=== PATIENT | female | born 1980 | race African-American/Black ===

== ENCOUNTER 2019-10-10 05:39 | Emergency (ER) | payer OTHER ==
[~2019-10-10] VITALS: Ht 152.4 cm; Wt 53.5 kg
[~2019-10-10 05:39] MED LIST: ALBU0.0912 IH; ALPR0.5T2 PO; FLONAS NS; TRAZ100T99 PO
[2019-10-10 05:50] VITALS: BP 138/90
--- NOTE | 2019-10-10 05:50 | NUR ---
PT AMBULATED TO ER BED 8
--- NOTE | 2019-10-10 06:02 | NUR ---
39 YO F PEMA SELF PRESENTS TO ED C/O 07/30 THROBBING UPPER LEFT LEG PAIN X 3 DAYS THAT IS CONSTANT. PT HAS HAD SIMILAR PAIN BEFORE X 1 YEAR AGO. NEGATIVE XRAY, TX'D WITH PHYSICAL THERAPY. PT STATES PHYSICAL THERAPY MADE IT WORSE BUT GRADUALLY WENT AWAY. PT STATES PAIN HAS BEEN GRADUALLY RETURNING X 1 WEEK. PAIN HAS BEEN UNCONTROLLED AND SEVERE X 3 DAYS. MEDICATED AT HOME WITH TRAMADOL AND ROBAXIN WITH MINIMAL RELIEF. REPORTS DIFFICULTY WALKING. PMH-- HIV+, HYSTERECTOMY- 2013, HERNIA REPAIR-2014 RX-- TRIMEC, TRAMADOL AND ROBAXIN Addendum: 10/10/19 at 0612 by [facility] DENIES RECENT TRAUMA/INJURY.
[2019-10-10] MEDS ORDERED: MORPHINE SULFATE 4 MG/ML SYR IM ONE (06:15)
--- NOTE | 2019-10-10 06:26 | NUR ---
MEDICATED WITH 4 MG IM MORPHINE FOR 10/10 LEFT LEG PAIN. WILL REASSESS.
--- NOTE | 2019-10-10 06:50 | NUR ---
REPORTS PAIN RELIEF; 03/30. PT STATES PAIN LEVEL IS TOLERABLE AT THIS TIME. PT STATES SHE WILL BE CALLING MOM FOR RIDE HOME.
[2019-10-10 06:51] VITALS: BP 138/90
--- NOTE | 2019-10-10 06:51 | NUR ---
Patient discharged with v/s stable. Written and verbal after care instructions given and explained. Patient alert, oriented and verbalized understanding of instructions. Ambulatory with steady gait. All questions addressed prior to discharge. ID band removed. Patient advised to follow up with PMD. Rx of [place] given. Patient educated on indication of medication including possible reaction and side effects. Opportunity to ask questions provided and answered.
== END 2019-10-10 06:51 | disposition home or self-care (01) ==
LOC: MED 05:39
DX: M79.652 Pain in left thigh (principal); J45.909 Unspecified asthma, uncomplicated; Z85.89 Personal history of malignant neoplasm of other organs and systems; Z90.710 Acquired absence of both cervix and uterus; Z88.1 Allergy status to other antibiotic agents; Z88.8 Allergy status to other drugs, medicaments and biological substances
CPT/HCPCS: 81002; 96372; 99283; J2270

== ENCOUNTER 2019-10-18 08:58 | Emergency (ER) | payer OTHER ==
[~2019-10-18] VITALS: Ht 149.9 cm; Wt 53.5 kg
[2019-10-18 09:05] VITALS: BP 127/79
--- NOTE | 2019-10-18 09:14 | NUR ---
PT TAKEN TO ER BED 11
--- NOTE | 2019-10-18 09:20 | NUR ---
C/O L LEG PAIN 05/30 & THROBBING X2 WEEKS. PT STATES THE PAIN STARTS IN THE HIP AREA AND RADIATES DOWN THE LLE. MEDICATED AT HOME WITH TRAMADOL WITH NO RELIEF. PT STATES IT IS PAINFUL AND DIFFICULT TO WALK. NO OBVIOUS DEFORMITY TO LLE, PT DENIES INJURY. CMS INTACT. PT PROVIDED GOWN TO CHANGE INTO, SIDE RAIL UP X1, BED IN LOW POSITION.
--- NOTE | 2019-10-18 10:05 | NUR ---
ERMD AT BEDSIDE
[2019-10-18] MEDS ORDERED: hydrOXYzine HCL 25 MG TAB PO ONE (10:20)
[2019-10-18] MEDS ORDERED: MORPHINE SULFATE 4 MG/ML SYR IM ONE (10:20)
[2019-10-18] MEDS ORDERED: DEXAMETHASONE 10 MG/ML VIAL IM ONE (10:20)
--- NOTE | 2019-10-18 11:40 | NUR ---
PT REPORTS PAIN RELIEF AT THIS TIME, 3/10 PAIN TO LLE
[2019-10-18 12:11] VITALS: BP 121/78
== END 2019-10-18 12:12 | disposition home or self-care (01) ==
LOC: MED 08:58
DX: M79.605 Pain in left leg (principal); J45.909 Unspecified asthma, uncomplicated; Z76.0 Encounter for issue of repeat prescription; Z79.899 Other long term (current) drug therapy; Z90.710 Acquired absence of both cervix and uterus; Z88.1 Allergy status to other antibiotic agents; Z88.8 Allergy status to other drugs, medicaments and biological substances; Z98.890 Other specified postprocedural states
CPT/HCPCS: 96372; 99283; J1100; J2270

== ENCOUNTER 2019-11-16 12:28 | Emergency (ER) | payer OTHER ==
[~2019-11-16] VITALS: Ht 152.4 cm; Wt 53.5 kg
[2019-11-16 12:43] VITALS: BP 113/93
--- NOTE | 2019-11-16 12:50 | NUR ---
pt ambulates to lobby in stable condition
--- NOTE | 2019-11-16 13:44 | NUR ---
Patient ambulated to chair B. RN evaluating patient.
[2019-11-16] MEDS ORDERED: HYDROcodone/APAP 5/325 MG 1 TAB TAB PO ONE (14:05)
--- NOTE | 2019-11-16 14:21 | NUR ---
C/O INTERMITTENT LEFT HIP/THIGH CHRONIC---AMBULATORY WITH STEADY GAIT.
--- NOTE | 2019-11-16 14:23 | NUR ---
C/O INTERMITTENT LEFT HIP/THIGH CHRONIC---AMBULATORY WITH STEADY GAIT.
[2019-11-16 14:24] VITALS: BP 121/89
== END 2019-11-16 14:25 | disposition home or self-care (01) ==
LOC: MED 12:28
DX: G89.29 Other chronic pain (principal); M25.552 Pain in left hip; Z76.0 Encounter for issue of repeat prescription; Z88.1 Allergy status to other antibiotic agents; J45.909 Unspecified asthma, uncomplicated; Z85.89 Personal history of malignant neoplasm of other organs and systems; Z79.899 Other long term (current) drug therapy
CPT/HCPCS: 99283

== ENCOUNTER 2020-01-03 14:07 | Emergency (ER) | payer OTHER ==
[~2020-01-03] VITALS: Ht 152.4 cm; Wt 52.2 kg
[~2020-01-03 14:07] MED LIST changes: +TRAZ-471 PO; -TRAZ100T99 PO
[2020-01-03 14:13] VITALS: BP 112/69
--- NOTE | 2020-01-03 14:19 | NUR ---
PT WHEELED TO BED 2.
--- NOTE | 2020-01-03 14:26 | NUR ---
39 Y/O FEMALE C/O LT HIP PAIN X 1 YEAR WORSENING THE LAST 2 DAYS. STATES SHE IS AWAITING HIP REPLACEMENT AND PAIN MEDICATIONS ARE NOT CONTROLLING PAIN. STATES SHE IS UNABLE TO AMBULATE, DENIES TRAUMA/INJURY. 10/10 CONSTANT THROBBING PAIN. + CMS. SKIN WARM AND DRY. NO DEFORMITIES NOTED. NO BRUISING/SWELLING. SITTING IN BED X 1 SIDE RAIL RAISED, BED LOCKED AND IN LOW POSITION. MEDHX: HIV, HTN ALLERGIES: ROCEPHIN, IBUPROFEN
--- NOTE | 2020-01-03 14:28 | NUR ---
DR HILLMAN AT BEDSIDE EXAMINING PT
[2020-01-03] MEDS ORDERED: fentaNYL 0.05 MG/ML VIAL IM ONE (14:30)
[2020-01-03] MEDS ORDERED: LORazepam 2 MG/ML VIAL IM ONE (14:30)
--- NOTE | 2020-01-03 15:17 | NUR ---
STATES SLIGHT DECREASE IN PAIN, 7/10 AT THIS TIME
[2020-01-03 15:19] VITALS: BP 112/69
--- NOTE | 2020-01-03 15:19 | NUR ---
Patient discharged with v/s stable. Written and verbal after care instructions given and explained. Patient alert, oriented and verbalized understanding of instructions. Ambulatory with steady gait. All questions addressed prior to discharge. ID band removed. Patient advised to follow up with PMD. Rx of NORCO given. Patient educated on indication of medication including possible reaction and side effects. Opportunity to ask questions provided and answered. PT STATES SHE HAS RIDE HOME
== END 2020-01-03 15:19 | disposition home or self-care (01) ==
LOC: MED 14:07
DX: M25.552 Pain in left hip (principal); M79.605 Pain in left leg; J45.909 Unspecified asthma, uncomplicated; I10 Essential (primary) hypertension; Z79.899 Other long term (current) drug therapy; Z88.1 Allergy status to other antibiotic agents; Z88.6 Allergy status to analgesic agent; Z85.3 Personal history of malignant neoplasm of breast
CPT/HCPCS: 96372; 99284; J2060; J3010

== ENCOUNTER 2020-06-28 20:09 | Emergency (ER) | payer OTHER ==
[~2020-06-28] VITALS: Ht 149.9 cm; Wt 48.6 kg
[2020-06-28 20:36] VITALS: BP 132/92
--- NOTE | 2020-06-28 20:45 | NUR ---
40 YO FEMALE CO LEFT HIP PAIN SINCE YESTERDAY. PT STATES THAT SHE STEPPED OUT OF THE SHOWER WRONG AND HURT HER HIP. PT IS SEEING A SPECIALIST TO HAVE A HIP REPLACEMENT. PAIN IS 10/10 AND ACHING. PT IS ABLE TO AMBULATE. PMH- HTN, HIV, CERVICAL CANCER, ASTHMA MEDS- NORCO
[2020-06-28] MEDS ORDERED: PANTOPRAZOLE 40 MG TABEC PO ONE (21:40)
[2020-06-28] MEDS ORDERED: KETOROLAC 30 MG/ML VIAL IM ONE (21:40)
--- NOTE | 2020-06-28 22:17 | NUR ---
PATIENT ELOPED FROM FACILITY. DISCHARGE INSTRUCTIONS NOT GIVEN TO PATIENT. DR. Heaton NOTIFIED.
== END 2020-06-28 22:15 | disposition left against medical advice (07) ==
LOC: MED 20:09
DX: M25.552 Pain in left hip (principal); G89.29 Other chronic pain; J45.909 Unspecified asthma, uncomplicated; I10 Essential (primary) hypertension; Z85.41 Personal history of malignant neoplasm of cervix uteri; Z79.899 Other long term (current) drug therapy; Z88.1 Allergy status to other antibiotic agents; Z88.8 Allergy status to other drugs, medicaments and biological substances
CPT/HCPCS: 96372; 99283; J1885

== ENCOUNTER 2021-05-21 23:29 | Emergency (ER) | payer OTHER ==
[~2021-05-21] VITALS: Ht 149.9 cm; Wt 49.9 kg
[2021-05-21 23:30] VITALS: BP 148/106
--- NOTE | 2021-05-21 23:30 | NUR ---
BIBA FROM HOME, SYNCOPAL EPISODE . LOC FOR 30 SECS. IS NOW AWAKE AND ALERT. SKIN WARM AND DRY. AMBULATES AT BEDIDE WITH STEARY GAIT MEDHX- DENIES ALLX- ROCEPHIN
[2021-05-21] MEDS ORDERED: NACL 0.9% 1,000 ML IV ONE (23:55)
[2021-05-22 00:37] LABS: BASOPHILS % (AUTO) 0.3 % (0.0-2.0); EOSINOPHILS # (AUTO) 0.1 K/uL (0-0.4); EOSINOPHILS % (AUTO) 1.1 % (0.0-4.0); HEMATOCRIT 37.7 % (36-48); HEMOGLOBIN 12.7 g/dL (12.0-16.0); LYMPHOCYTES # (AUTO) 1.2 K/uL (2.5-16.5); MEAN CORPUSCULAR HEMOGLOBIN 32 pg (27-31); MEAN CORPUSCULAR HGB CONC 34 g/dL (33-37); MONOCYTES # (AUTO) 0.8 K/uL (0.8-1.0); MONOCYTES % (AUTO) 12.6 % (1.7-9.3); PLATELET COUNT (AUTO) 367 K/uL (140-450); RED BLOOD CELL COUNT(AUTO) 3.93 MIL/uL (4.20-5.40); RED CELL DISTRIBUTION WIDTH 12.1 % (11.6-13.7); WHITE BLOOD COUNT (AUTO) 6.1 K/uL (4.8-10.8)
[2021-05-22 00:57] LABS: CARBON DIOXIDE 27.1 mmol/L (21-32); CREATININE 0.9 mg/dL (0.6-1.3); POTASSIUM 3.1 mmol/L (3.5-5.1)
--- NOTE | 2021-05-22 01:00 | NUR ---
AMBULATES TO BR WITH STEADY GAIT.
[2021-05-22] MEDS ORDERED: POTASSIUM CHLORIDE 10 MEQ TABER PO ONE (01:25)
--- NOTE | 2021-05-22 01:45 | NUR ---
DR. SYED AT BEDSIDE FOR MSE
[2021-05-22 02:00] VITALS: BP 128/84
--- NOTE | 2021-05-22 02:00 | NUR ---
Patient discharged with v/s stable. Written and verbal after care instructions given and explained. Patient verbalized understanding. Ambulatory with steady gait. All questions addressed prior to discharge. Advised to follow up with PMD.
== END 2021-05-22 02:00 | disposition home or self-care (01) ==
LOC: MED 23:29
DX: R55 Syncope and collapse (principal); R00.0 Tachycardia, unspecified; J45.909 Unspecified asthma, uncomplicated; I10 Essential (primary) hypertension; F17.210 Nicotine dependence, cigarettes, uncomplicated; Z88.1 Allergy status to other antibiotic agents
CPT/HCPCS: 36415; 80048; 85025; 93005; 96360; 99284; J7030

== ENCOUNTER 2021-06-06 15:44 | Emergency (ER) | payer OTHER ==
[~2021-06-06] VITALS: Ht 149.9 cm
[2021-06-06 16:08] VITALS: BP 122/103
--- NOTE | 2021-06-06 16:10 | NUR ---
DR SYED MADE AWARE OF PT STATUS
[2021-06-06] MEDS ORDERED: NACL 0.9% 1,000 ML IV ONE (16:50)
[2021-06-06] MEDS ORDERED: ONDANSETRON 4 MG/2 ML VIAL IVP ONE (16:50)
[2021-06-06 17:15] VITALS: BP 122/103
[2021-06-06] MEDS ORDERED: KETOROLAC 30 MG/ML VIAL IVP ONE (17:20)
--- NOTE | 2021-06-06 17:20 | NUR ---
Pt ambulated to bed 08 with steady/even gait.
--- NOTE | 2021-06-06 17:25 | NUR ---
41 y/o F BIB self from with c/c headache, chest pain, SOB x 4 days. Patient also reports nausea + vomiting 4 episodes today. Patient A&Ox4, ambulatory, states headache 10/10 to top and sides of head, throbbing/constant, non-radiating pain. Reports taking Naproxen, Tylenol, and tramadol with temporary relief. Patient denies fever, chills, abd pain, dysuria, urinary symptoms. telemetry monitor in place. Bed locked in lowest position, side rails x 1. PMH: HIV + Meds: Denies Allergies: Ceftriaxone Sx: hysterectomy, L hip replacement, eye sx x 2
--- NOTE | 2021-06-06 17:26 | NUR ---
PT MOVED TO ER BED 8, IV 20GA RT HAND, IVF/IVP MEDS GIVEN-NADR AT THIS TIME. PT C/O H/A 05/30. ER MD NOTIFTED. ALL ORDERS EXECUTED
--- NOTE | 2021-06-06 17:41 | NUR ---
Pupils equal and reactive to light bilaterally. No facial droop noted. No smile deficit noted. Speech normal for patient. Patient is alert and oriented to person, place, time and event. Bilateral hand risk mgr equal. Bilateral foot push equal.
[2021-06-06] MEDS ORDERED: METOCLOPRAMIDE 10 MG/2 ML INJ VIAL IVP ONE (18:05)
[2021-06-06] MEDS ORDERED: diphenhydrAMINE 50 MG/ML VIAL IVP ONE (18:05)
[2021-06-06] MEDS ORDERED: IBUP-2213 PO (18:11)
[2021-06-06] MEDS ORDERED: ONDA8TAB87 PO (18:11)
--- NOTE | 2021-06-06 18:35 | NUR ---
Patient states she feels better after Reglan and Benadryl IVP. Denies nausea at this time. All pt needs met.
--- NOTE | 2021-06-06 19:01 | NUR ---
Patient discharged with v/s stable. Written and verbal after care instructions given and explained. Patient alert, oriented and verbalized understanding of instructions. Ambulatory with steady gait. All questions addressed prior to discharge. ID band removed. Patient advised to follow up with PMD. Rx of Ibuprofen, Zofran given. Patient educated on indication of medication including possible reaction and side effects. Opportunity to ask questions provided and answered.
[2021-06-06 19:02] VITALS: BP 134/93
== END 2021-06-06 19:01 | disposition home or self-care (01) ==
LOC: MED 15:44
DX: R51.9 Headache, unspecified (principal); R11.2 Nausea with vomiting, unspecified; E86.0 Dehydration; Z88.1 Allergy status to other antibiotic agents; J45.909 Unspecified asthma, uncomplicated; I10 Essential (primary) hypertension; Z79.899 Other long term (current) drug therapy
CPT/HCPCS: 96374; 96375; 99284; J1200; J1885; J2405; J2765; J7030

== ENCOUNTER 2021-12-01 14:42 | Emergency (ER) | payer OTHER ==
[~2021-12-01] VITALS: Ht 149.9 cm; Wt 51.7 kg
[~2021-12-01 14:42] MED LIST changes: +IBUP-2213 PO; +ONDA8TAB87 PO
[2021-12-01 14:55] VITALS: BP 141/86
[2021-12-01] MEDS ORDERED: MORPHINE SULFATE 4 MG/ML SYR IM ONE (15:10)
[2021-12-01] MEDS ORDERED: ONDANSETRON 4 MG ODT PO ONE (15:10)
--- NOTE | 2021-12-01 15:15 | NUR ---
41 y/o female ambulated to bed 4 with walker, pt states she "has a broken hip", pt states she stood up and something popped on her right side and radiates down to right ankle, also c/o nausea. 10 pain. denies vomiting, diarrhea, chills, sore throat, sob, cp and fevers. pmh: hiv+ allergy: ceftriaxone (sob, swelling) med: tramadol, current hiv tx
[2021-12-01 16:00] VITALS: BP 129/93
[2021-12-01] MEDS ORDERED: DICL20GE TP (16:04)
--- NOTE | 2021-12-01 16:10 | NUR ---
Patient discharged with v/s stable. Written and verbal after care instructions given and explained. Patient alert, oriented and verbalized understanding of instructions. Ambulatory with steady gait. All questions addressed prior to discharge. ID band removed. Patient advised to follow up with PMD. Rx of diclofenac sodium given. Patient educated on indication of medication including possible reaction and side effects. Opportunity to ask questions provided and answered.
== END 2021-12-01 16:10 | disposition home or self-care (01) ==
LOC: MED 14:42
DX: M25.551 Pain in right hip (principal); G89.29 Other chronic pain; J45.909 Unspecified asthma, uncomplicated; I10 Essential (primary) hypertension; Z79.899 Other long term (current) drug therapy; Z88.1 Allergy status to other antibiotic agents; Z98.890 Other specified postprocedural states; Z85.41 Personal history of malignant neoplasm of cervix uteri
CPT/HCPCS: 96372; 99283; J2270; Q0162

== ENCOUNTER 2022-09-09 22:34 | Emergency (ER) | payer OTHER ==
[~2022-09-09] VITALS: Ht 149.9 cm; Wt 47.2 kg
[~2022-09-09 22:34] MED LIST changes: +DICL20GE TP
[2022-09-10] VITALS: BP 126/72
--- NOTE | 2022-09-10 00:13 | NUR ---
PT TAKEN TO XR VIA W/C
--- NOTE | 2022-09-10 00:41 | NUR ---
Patient being evaluated by physician
[2022-09-10] MEDS ORDERED: KETOROLAC 60 MG/2 ML VIAL IM ONE ×2 (00:45→00:47)
[2022-09-10] MEDS ORDERED: NAPR-54 PO (02:24)
--- NOTE | 2022-09-10 02:30 | NUR ---
d/c and medication instructions provided to pt by dr. griffin. rx of naprosyn given.
== END 2022-09-10 00:41 | disposition home or self-care (01) ==
LOC: MED 22:34
DX: S73.101A Unspecified sprain of right hip, initial encounter (principal); J45.909 Unspecified asthma, uncomplicated; I10 Essential (primary) hypertension; Z85.41 Personal history of malignant neoplasm of cervix uteri; Z98.890 Other specified postprocedural states; Z79.899 Other long term (current) drug therapy; Z88.1 Allergy status to other antibiotic agents; W19.XXXA Unspecified fall, initial encounter; Y93.K1 Activity, walking an animal; Y92.89 Other specified places as the place of occurrence of the external cause; Y99.8 Other external cause status
CPT/HCPCS: 73521; 96372; 99283; J1885

== ENCOUNTER 2024-08-04 22:22 | Emergency (ER) | payer MEDICARE, OTHER ==
[~2024-08-04] VITALS: Ht 152.4 cm; Wt 52.2 kg
[2024-08-04 22:22] VITALS: BP 97/52; PULSE 77; RESP 19; TEMP 98.1; O2SAT 99
[~2024-08-04 22:22] MED LIST changes: +NAPR-337 PO
[2024-08-04 22:56] LABS: BASOPHILS % (AUTO) 0.3 % (0.0-2.0); EOSINOPHILS # (AUTO) 0.3 K/uL (0-0.4); EOSINOPHILS % (AUTO) 4.9 % (0.0-4.0); HEMATOCRIT 33.5 % (36-48); HEMOGLOBIN 11.3 g/dL (12.0-16.0); LYMPHOCYTES # (AUTO) 1.1 K/uL (2.5-16.5); LYMPHOCYTES % (AUTO) 17.8 % (20.5-51.1); MEAN CORPUSCULAR HEMOGLOBIN 32 pg (27-31); MEAN CORPUSCULAR HGB CONC 34 g/dL (33-37); MEAN CORPUSCULAR VOLUME 93.6 fL (80-94); MONOCYTES # (AUTO) 0.2 K/uL (0.8-1.0); MONOCYTES % (AUTO) 2.8 % (1.7-9.3); NEUTROPHILS # (AUTO) 4.7 K/uL (1.8-7.7); NEUTROPHILS % (AUTO) 74.2 % (42.2-75.2); PLATELET COUNT (AUTO) 368 K/uL (140-450); RED BLOOD CELL COUNT(AUTO) 3.58 MIL/uL (4.20-5.40); RED CELL DISTRIBUTION WIDTH 13.3 % (11.6-13.7); WHITE BLOOD COUNT (AUTO) 6.3 K/uL (4.8-10.8)
[2024-08-04 23:02] VITALS: O2SAT 99
[2024-08-04 23:11] LABS: ALANINE AMINOTRANSFERASE 20 U/L (12-78); ALBUMIN 2.5 g/dL (3.4-5.0); ALCOHOL, BLOOD 88 mg/dL (<10); ALKALINE PHOSPHATASE 88 U/L (50-136); ASPARTATE AMINOTRANSFERASE 33 U/L (15-37); CREATINE KINASE, TOTAL 54 U/L (26-192); SALICYLATE < 2.8 mg/dL (2.8-20.0); TOTAL BILIRUBIN 0.1 mg/dL (0.0-1.0)
[2024-08-04 23:12] LABS: ACETAMINOPHEN < 0.5 ug/ml (10-30)
[2024-08-04 23:20] LABS: ANION GAP 9.6 (8-16); CALCIUM 8.5 mg/dL (8.5-10.1); CARBON DIOXIDE 26.8 mmol/L (21-32); CREATININE 0.8 mg/dL (0.6-1.3); POTASSIUM 3.4 mmol/L (3.5-5.1)
[2024-08-05 00:26] LABS: AMPHETAMINE, URINE NEGATIVE ng/ml (NEG <=1000); BARBITURATE, URINE NEGATIVE ng/ml (NEG <=200); BENZODIAZEPINE, URINE NEGATIVE ng/mL (NEG <=200); CANNABINOID, URINE NEGATIVE ng/mL (NEG <=50); COCAINE, URINE NEGATIVE ng/mL (NEG <=300); OPIATE, URINE NEGATIVE ng/mL (NEG <=2000); PHENCYCLIDINE SCREEN,URINE NEGATIVE ng/mL (NEG <=25)
[2024-08-05] MEDS: NACL 0.9% 1,000 ML IV ONE (02:10)
[2024-08-05 02:11] VITALS: O2SAT 99
[2024-08-05 02:14] VITALS: BP 110/67; PULSE 92; RESP 15
[2024-08-05 06:47] VITALS: O2SAT 100
== END 2024-08-05 02:55 | disposition home or self-care (01) ==
LOC: MED 22:22
DX: T50.994A Poisoning by other drugs, medicaments and biological substances, undetermined, initial encounter (principal); F10.90 Alcohol use, unspecified, uncomplicated; R56.9 Unspecified convulsions; J45.909 Unspecified asthma, uncomplicated; I10 Essential (primary) hypertension; F32.9 Major depressive disorder, single episode, unspecified; Z85.41 Personal history of malignant neoplasm of cervix uteri; Z79.899 Other long term (current) drug therapy; Z88.1 Allergy status to other antibiotic agents; Y90.4 Blood alcohol level of 80-99 mg/100 ml
CPT/HCPCS: 36415; 80048; 80076; 80305; 81025; 82550; 85025; 96360; 99283; G0480; G0482; J7030